=== PATIENT | male | born 1945 | race Caucasian/White ===

== ENCOUNTER → 2017-03-06 | Day surgery (SDC) | payer MEDICARE ==
[~2017-03-06] MED LIST: ACETAMINOPHEN 1000 MG/100 ML VIAL IV ONE; ACETAMINOPHEN/HYDROcodone 325 MG/5 MG TAB ONE; BUPIVACAINE/EPINEPHRINE 0.5% PF 10 ML VIAL ONE; LACTATED RINGER'S 1000 ML INJ 1,000 ML ONE; LISI-360 PO; MIDAZOLAM HCL 2 MG/2 ML VIAL ONE; MORPHINE SULFATE 4 MG/ML INJ ONE; OMEP20TA39 PO; ONDANSETRON HCL 4 MG/2 ML VIAL IV PUSH ONE; PROPOFOL 200 MG/20 ML AMP IV ONE; ZOCO40TA PO; ceFAZolin 2 GM PREMIX 50 ML ONE; metroNIDAZOLE 500 MG INJ 100 ML IV ONE
--- NOTE | 2017-03-06 15:09 | TN ---
cc: MOSES ALSTON M.D., JOSEPH D. M.D. DATE OF SURGERY: 03/06/2017 PREOPERATIVE DIAGNOSIS 1. Biliary colic type symptoms with ultrasound showing possible polyp or mass in the gallbladder. 2. Bilateral inguinal hernia, asymptomatic. POSTOPERATIVE DIAGNOSIS 1. Cholelithiasis, cholecystitis, chronic. 2. Bilateral inguinal hernias, direct type, asymptomatic. PROCEDURE Laparoscopic cholecystectomy. ANESTHESIA General. SURGEON Dr. Smith. CUT OFF MACHINE OPERATOR TAMAR Carvalho The REGIONAL TELECOMMUNICATIONS SPECIALIST was present from beginning to the end of the case assisting in all portions of the procedure. It was necessary to have this individual in the room to assist in the above surgical procedure. The surgical procedure was assisted by the REGIONAL TELECOMMUNICATIONS SPECIALIST. The REGIONAL TELECOMMUNICATIONS SPECIALIST presence was necessary throughout the case for appropriate retraction, dissection, visualization, and resection of the important anatomical structures during the surgical procedure. The REGIONAL TELECOMMUNICATIONS SPECIALIST was assisting throughout the entirety of the operation. The skill set of the REGIONAL TELECOMMUNICATIONS SPECIALIST is medically and surgically necessary to safely complete the surgical procedure. During the surgical case the operating room nursing surgical services director was working instrument table and passing instruments to the attending surgeon and REGIONAL TELECOMMUNICATIONS SPECIALIST The REGIONAL TELECOMMUNICATIONS SPECIALIST was directly assisting the operating surgeon and involved in the technical aspects of the surgical case. INDICATION This is a pleasant 71-year-old gentleman who has been having some biliary colic type symptoms. He had an abnormality seen on the ultrasound. Plans were made for above. FINDINGS Intraoperatively it was found that he had a very contracted gallbladder, somewhat intrahepatic. We are able to remove it. I did not palpate a mass or see what the pathology shows. DETAILS OF PROCEDURE The patient was taken to the operating room and placed in the supine position. After anesthesia his abdomen is prepped with Betadine solution. We do a timeout. He is given preoperative antibiotics. We make an incision just below the umbilicus. The Veress needle is inserted and a saline load test is performed. The abdomen is insufflated to 15 mmHg. The camera is introduced after the trocar is placed. Three other working ports are placed, 5 mm below the xiphoid, 5 mm in between the two previously placed ports. A fourth working port was placed after we required further manipulation of the gallbladder. The gallbladder can be seen, somewhat contracted. There is some omentum stuck to it which is taken down with the Harmonic and blunt dissection and hydrodissection. We dissect to the angle of Calot identifying the cystic duct which is somewhat elongated going into the common duct and coming from the gallbladder. It is doubly ligated with hemoclips and transected. The cystic artery is identified just posterior to this. We are able then to dissect the gallbladder off the liver edge. It is somewhat intrahepatic. We did enter the gallbladder. A small amount of bile was spilled. No stones were spilled. I then do a dome-down technique to further manipulate the gallbladder from the gallbladder fossa. This is placed in an EndoCatch and pulled out through the umbilical incision. We then check our dissection site and there is excellent hemostasis. The cystic duct and the cystic artery stumps can be visualized. We did check down the pelvis. He has bilateral direct inguinal hernias that are small. He is asymptomatic from these. The appendix looked normal. The liver is smooth. The peritoneal surfaces are smooth. No other gross abnormality. The CO2 is removed. The irrigating solution is removed. The 10 mm port site is closed with 0 Vicryl at the fascial layer and skin is closed with 4-0 Vicryl. The patient tolerated the procedure well and had no immediate post-op complication. MD IRENA Shafer/ERICKA /12:49 PM /2:53 PM ESTER
== END | disposition home or self-care (01) ==
LOC: ESDC 10:44
PROVIDERS: ATTEND Surgery
DX: K80.10 Calculus of gallbladder with chronic cholecystitis without obstruction (principal); K40.20 Bilateral inguinal hernia, without obstruction or gangrene, not specified as recurrent
CPT/HCPCS: 00790; 47562; 88304; J0131; J0690; J2250; J2270; J2405; J3010; J7120